=== PATIENT | female | born 1975 | race African-American/Black ===

== ENCOUNTER 2020-04-03 21:42 | Emergency (ER) | payer BC, OTHER ==
[~2020-04-03] VITALS: Ht 167.6 cm; Wt 86.2 kg
[2020-04-03 22:12] LABS: URINE BILIRUBIN NEGATIVE (Negative); URINE BLOOD TRACE (Negative); URINE CLARITY CLEAR; URINE COLOR YELLOW; URINE GLUCOSE-RANDOM* NEGATIVE (Negative); URINE KETONES NEGATIVE (Negative); URINE LEUKOCYTES-REFLEX NEGATIVE (Negative); URINE NITRITE-REFLEX NEGATIVE (Negative); URINE PROTEIN (DIPSTICK) NEGATIVE (Negative); URINE SPECIFIC GRAVITY >= 1.030 (1.005-1.035); URINE UROBILINOGEN 0.2 E.U./dl (0.2-1.0)
[2020-04-03 23:52] LABS: ABSOLUTE NEUTROPHILS 6.6 thou/uL (1.4-8.2); BASOPHILS 0.4 % (0.0-2.0); EOSINOPHILS 1.2 % (0.0-3.0); HEMATOCRIT 41.1 % (37.0-47.0); HEMOGLOBIN 13.7 gm/dL (12.0-15.0); LYMPHOCYTES 20.9 % (24.0-44.0); MCH 27.1 pg (26.0-34.0); MCHC 33.2 g/dL (28.0-37.0); MCV 81.4 fL (80.0-100.0); PLATELET COUNT 290 thou/uL (150-400); POLYS 68.5 % (36.0-66.0); RBC 5.05 mil/uL (4.20-5.00); RDW 14.6 % (10.5-14.5); WBC 9.7 thou/uL (4.0-11.0)
[2020-04-03 23:55] LABS: CALCIUM 9.2 mg/dL (8.5-10.1); CREATININE 0.7 mg/dL (0.6-1.0); POTASSIUM 3.8 mmol/L (3.5-5.1)
[2020-04-04 00:03] LABS: TOTAL BILIRUBIN 0.6 mg/dL (0.2-1.0); TOTAL PROTEIN 7.5 g/dL (6.4-8.2)
[2020-04-04] MEDS ORDERED: NAPROSYN500 M1 PO (02:45)
[2020-04-04 02:53] VITALS: BP 134/88
== END 2020-04-04 02:53 | disposition home or self-care (01) ==
LOC: ER 21:42
PROVIDERS: Emergency Medicine
DX: R10.11 Right upper quadrant pain (principal); R10.31 Right lower quadrant pain; R30.9 Painful micturition, unspecified; Z88.2 Allergy status to sulfonamides

== ENCOUNTER 2020-04-10 06:10 | Emergency (ER) | payer BC, OTHER ==
[~2020-04-10] VITALS: Ht 167.6 cm; Wt 86.2 kg
[~2020-04-10 06:10] MED LIST: NAPROSYN500 M1 PO
[2020-04-10] MEDS ORDERED: ADVIL200 M1 PO (06:26)
[2020-04-10 07:20] LABS: MCH 26.8 pg (26.0-34.0)
[2020-04-10 07:22] LABS: HEMATOCRIT 42.6 % (37.0-47.0); HEMOGLOBIN 13.8 gm/dL (12.0-15.0); MCHC 32.5 g/dL (28.0-37.0); MCV 82.4 fL (80.0-100.0); RBC 5.17 mil/uL (4.20-5.00); RDW 14.7 % (10.5-14.5); WBC 13.8 thou/uL (4.0-11.0)
[2020-04-10 07:27] LABS: CALCIUM 9.4 mg/dL (8.5-10.1); CREATININE 0.7 mg/dL (0.6-1.0)
[2020-04-10 07:34] LABS: ALBUMIN 3.9 g/dL (3.4-5.0); TOTAL BILIRUBIN 0.4 mg/dL (0.2-1.0); TOTAL PROTEIN 7.5 g/dL (6.4-8.2)
[2020-04-10 07:53] LABS: POTASSIUM 5.3 mmol/L (3.5-5.1)
[2020-04-10] MEDS ORDERED: ULTRAM 50MG TAB50 MG PO (08:59)
[2020-04-10] MEDS ORDERED: BENTYL 10 MG CA10 M1 PO (08:59)
[2020-04-10 09:25] VITALS: BP 148/92
[2020-04-10 10:54] LABS: ABSOLUTE NEUTROPHILS 9.1 thou/uL (1.4-8.2); PLATELET COUNT 280 thou/uL (150-400); PLATELET ESTIMATE NORMAL
== END 2020-04-10 09:26 | disposition home or self-care (01) ==
LOC: ER 06:10
PROVIDERS: Emergency Medicine
DX: R10.10 Upper abdominal pain, unspecified (principal); Z88.1 Allergy status to other antibiotic agents; Z88.8 Allergy status to other drugs, medicaments and biological substances; Z87.442 Personal history of urinary calculi; Z98.890 Other specified postprocedural states